=== PATIENT | male | born 2000 | race Asian ===

== ENCOUNTER 2022-07-10 22:29 | Inpatient (IN) | payer MEDICAID ==
[~2022-07-10] VITALS: Ht 172.7 cm; Wt 66.0 kg
[~2022-07-10 22:29] MED LIST: [UNRECOGNIZED DRUG - REMARK] PO
[2022-07-10] MEDS ORDERED: LORazepam 2 MG/ML VIAL IM ONE (23:15)
[2022-07-10] MEDS ORDERED: DiphenhydrAMINE HCL 50 MG/ML VIAL IM ONE (23:15)
[2022-07-10] MEDS ORDERED: HALOPERIDOL LACTATE 5 MG/ML VIAL IM ONE ×2 (23:15→23:30)
[2022-07-11] LABS: COVID AG,FIA SOURCE NASOPHARYNGEAL
[2022-07-11 00:09] LABS: BASOPHILS % (AUTO) 0.7 % (0.0-2.0); EOSINOPHILS % (AUTO) 0.6 % (1.0-6.0); HEMATOCRIT 43.8 % (41-53); HEMOGLOBIN 14.6 g/dL (13.5-17.5); LYMPHOCYTES # (AUTO) 1.1 K/uL (1.0-4.8); LYMPHOCYTES % (AUTO) 20.6 % (22.0-44.0); MEAN CORPUSCULAR HEMOGLOBIN 30.3 pg (26.0-34.0); MEAN CORPUSCULAR HGB CONC 33.4 G/dL (31.0-37.0); MEAN CORPUSCULAR VOLUME 91 fL (80-100); MONOCYTES # (AUTO) 0.3 K/uL (0.1-1.0); MONOCYTES % (AUTO) 6.4 % (2.0-9.0); NEUTROPHILS # (AUTO) 3.8 K/uL (1.8-7.7); NEUTROPHILS % (AUTO) 71.7 % (40.0-70.0); PLATELET COUNT (AUTO) 248 K/uL (150-450); RED BLOOD CELL COUNT(AUTO) 4.84 MIL/uL (4.50-5.90)
[2022-07-11 00:13] LABS: ANION GAP 10 mmol/L (8-16); CALCIUM, TOTAL 9.5 mg/dL (8.8-10.5); CARBON DIOXIDE 29 mmol/L (22-29); CHLORIDE 103 mmol/L (98-107); CREATININE 0.83 mg/dL (0.60-1.30); GLUCOSE,RANDOM 93 mg/dL (70-110); SODIUM SERUM 142 mmol/L (136-145); UREA NITROGEN, BLOOD 9 mg/dL (7-18)
[2022-07-11 00:14] LABS: GLOMERULAR FILTR. RATE CALC > 60 mL/min (>60)
[2022-07-11 00:19] LABS: ALANINE AMINOTRANSFERASE 11 U/L (12-78); ALBUMIN 4.2 g/dL (3.4-5.0); ALKALINE PHOSPHATASE 70 U/L (46-116); ASPARTATE AMINOTRANSFERASE 12 U/L (15-37); BILIRUBIN,TOTAL 0.8 mg/dL (0.1-1.0); TOTAL PROTEIN, SERUM 7.6 g/dL (6.4-8.2)
[2022-07-11] MEDS ORDERED: HALOPERIDOL 5 MG TABLET PO PRN (00:45)
[2022-07-11] MEDS ORDERED: ZOLPIDEM TARTRATE 10 MG TABLET PO PRN (00:45)
[2022-07-11] MEDS ORDERED: LORazepam 2 MG TABLET PO PRN (00:45)
[2022-07-11 16:01] LABS: APPEARANCE,URINE CLEAR (CLEAR); BILIRUBIN,URINE NEGATIVE (NEGATIVE); GLUCOSE, URINE (UA) NEGATIVE (NEGATIVE); KETONES,URINE TRACE mg/dL (NEGATIVE); LEUKOCYTE ESTERASE ,URINE NEGATIVE (NEGATIVE); NITRATE,URINE NEGATIVE (NEGATIVE); OCCULT BLOOD,URINE NEGATIVE (NEGATIVE); PROTEIN,URINE NEGATIVE (NEGATIVE); SPECIFIC GRAVITIY, URINE 1.017 (1.003-1.030)
[2022-07-11 16:07] LABS: AMPHET/METH SCREEN,URINE NEGATIVE (NEGATIVE); BARBITURATE SCREEN, URINE NEGATIVE (NEGATIVE); BENZODIAZEPINES SCREEN,URINE NEGATIVE (NEGATIVE); CANNABINOID SCREEN,URINE NEGATIVE (NEGATIVE); COCAINE SCREEN,URINE NEGATIVE (NEGATIVE); METHADONE SCREEN, URINE NEGATIVE (NEGATIVE); OPIATE SCREEN,URINE NEGATIVE (NEGATIVE)
[2022-07-11 16:08] LABS: PHENCYCLIDINE SCREEN,URINE NEGATIVE (NEGATIVE)
[2022-07-12 10:30] VITALS: BP 128/76
[2022-07-13 08:30] VITALS: BP 115/69
[2022-07-13] MEDS ORDERED: DIVA-112 PO (11:38)
== END 2022-07-13 14:30 | disposition home or self-care (01) | DRG 755 ==
LOC: EMS 22:52 → 3EC 07-12 09:00
PROVIDERS: ADMIT Psychiatry & Neurology Psychiatry; ATTEND Psychiatry & Neurology Psychiatry
DX: F43.10 Post-traumatic stress disorder, unspecified (principal); Z20.822 Contact with and (suspected) exposure to COVID-19
CPT/HCPCS: 80053; 81003; 85025; 99285; G0480; J1200; J1630; J2060

== ENCOUNTER 2023-02-22 18:28 | Emergency (ER) | payer MEDICAID ==
[~2023-02-22] VITALS: Ht 172.7 cm; Wt 77.3 kg
[~2023-02-22 18:28] MED LIST changes: +DIVA-112 PO; -[UNRECOGNIZED DRUG - REMARK] PO
[2023-02-22 18:29] VITALS: BP 148/72
[2023-02-22 20:29] LABS: BASOPHILS % (AUTO) 0.8 % (0.0-2.0); EOSINOPHILS % (AUTO) 0.4 % (1.0-6.0); HEMATOCRIT 46.7 % (41-53); HEMOGLOBIN 15.3 g/dL (13.5-17.5); LYMPHOCYTES # (AUTO) 1.6 K/uL (1.0-4.8); MEAN CORPUSCULAR HEMOGLOBIN 30.1 pg (26.0-34.0); MEAN CORPUSCULAR HGB CONC 32.9 G/dL (31.0-37.0); MEAN CORPUSCULAR VOLUME 92 fL (80-100); MONOCYTES # (AUTO) 0.6 K/uL (0.1-1.0); NEUTROPHILS # (AUTO) 5.8 K/uL (1.8-7.7); NEUTROPHILS % (AUTO) 71.8 % (40.0-70.0); PLATELET COUNT (AUTO) 252 K/uL (150-450); RED BLOOD CELL COUNT(AUTO) 5.09 MIL/uL (4.50-5.90); RED CELL DISTRIBUTION WIDTH 13.6 % (11.5-14.5)
[2023-02-22 20:38] LABS: ANION GAP 13 mmol/L (8-16); CALCIUM, TOTAL 9.5 mg/dL (8.8-10.5); CARBON DIOXIDE 26 mmol/L (22-29); CHLORIDE 100 mmol/L (98-107); CREATININE 0.87 mg/dL (0.60-1.30); GLOMERULAR FILTR. RATE CALC > 60 mL/min (>60); GLUCOSE,RANDOM 108 mg/dL (70-110); POTASSIUM 3.5 mmol/L (3.5-5.1); SODIUM SERUM 139 mmol/L (136-145)
[2023-02-22 20:46] LABS: ALANINE AMINOTRANSFERASE 10 U/L (12-78); ALBUMIN 4.7 g/dL (3.4-5.0); ALKALINE PHOSPHATASE 71 U/L (46-116); ASPARTATE AMINOTRANSFERASE 13 U/L (15-37); BILIRUBIN,TOTAL 0.8 mg/dL (0.1-1.0); TOTAL PROTEIN, SERUM 8.4 g/dL (6.4-8.2)
[2023-02-22 21:47] LABS: BARBITURATE SCREEN, URINE NEGATIVE (NEGATIVE); BENZODIAZEPINES SCREEN,URINE NEGATIVE (NEGATIVE); CANNABINOID SCREEN,URINE NEGATIVE (NEGATIVE); COCAINE SCREEN,URINE NEGATIVE (NEGATIVE); METHADONE SCREEN, URINE NEGATIVE (NEGATIVE); OPIATE SCREEN,URINE NEGATIVE (NEGATIVE); PHENCYCLIDINE SCREEN,URINE NEGATIVE (NEGATIVE)
[2023-02-22 22:15] LABS: AMPHET/METH SCREEN,URINE NEGATIVE (NEGATIVE)
== END 2023-02-22 19:30 | disposition left against medical advice (07) ==
LOC: EMS 18:29
DX: Z00.8 Encounter for other general examination (principal); Z53.21 Procedure and treatment not carried out due to patient leaving prior to being seen by health care provider
CPT/HCPCS: 99281; 80053; 85025; 36415; 80307 ×2; G0480

== ENCOUNTER 2023-10-18 10:32 | Inpatient (IN) | payer MEDICAID ==
[~2023-10-18] VITALS: Ht 157.5 cm; Wt 57.0 kg
[2023-10-18 10:59] LABS: BASOPHILS % (AUTO) 0.9 % (0.0-2.0); EOSINOPHILS % (AUTO) 1.5 % (1.0-6.0); HEMATOCRIT 39.5 % (41-53); HEMOGLOBIN 13.1 g/dL (13.5-17.5); LYMPHOCYTES % (AUTO) 21.3 % (22.0-44.0); MEAN CORPUSCULAR HEMOGLOBIN 31.3 pg (26.0-34.0); MEAN CORPUSCULAR VOLUME 95 fL (80-100); MONOCYTES % (AUTO) 11.2 % (2.0-9.0); NEUTROPHILS % (AUTO) 65.1 % (40.0-70.0); PLATELET COUNT (AUTO) 190 K/uL (150-450); RED BLOOD CELL COUNT(AUTO) 4.17 MIL/uL (4.50-5.90); RED CELL DISTRIBUTION WIDTH 14.9 % (11.5-14.5); WHITE BLOOD COUNT (AUTO) 9.2 K/uL (4.5-11.0)
[2023-10-18 11:03] LABS: COVID AG,FIA SOURCE NASAL SWAB
[2023-10-18 11:14] LABS: SARS-COV2 (COVID) ANTIGEN,FIA Negative (Negative)
[2023-10-18 11:31] LABS: ALANINE AMINOTRANSFERASE 30 U/L (12-78); ALKALINE PHOSPHATASE 76 U/L (46-116); ANION GAP 10 mmol/L (8-16); ASPARTATE AMINOTRANSFERASE 53 U/L (15-37); BILIRUBIN,TOTAL 0.4 mg/dL (0.1-1.0); CALCIUM, TOTAL 8.8 mg/dL (8.8-10.5); CARBON DIOXIDE 27 mmol/L (22-29); CHLORIDE 108 mmol/L (98-107); CREATININE 1.02 mg/dL (0.60-1.30); GLOMERULAR FILTR. RATE CALC > 60 mL/min (>60); GLUCOSE,RANDOM 91 mg/dL (70-110); POTASSIUM 4.6 mmol/L (3.5-5.1); SODIUM SERUM 145 mmol/L (136-145); TOTAL PROTEIN, SERUM 7.5 g/dL (6.4-8.2); UREA NITROGEN, BLOOD 6 mg/dL (7-18)
[2023-10-18 11:38] LABS: ALCOHOL, BLOOD (SERUM) < 3 mg/dL (0-10)
[2023-10-18 11:39] LABS: ALCOHOL, URINE DRUG SCREEN NEGATIVE (NEGATIVE); AMPHET/METH SCREEN,URINE NEGATIVE (NEGATIVE); BARBITURATE SCREEN, URINE NEGATIVE (NEGATIVE); BENZODIAZEPINES SCREEN,URINE NEGATIVE (NEGATIVE); CANNABINOID SCREEN,URINE NEGATIVE (NEGATIVE); COCAINE SCREEN,URINE NEGATIVE (NEGATIVE); METHADONE SCREEN, URINE NEGATIVE (NEGATIVE); OPIATE SCREEN,URINE NEGATIVE (NEGATIVE); PHENCYCLIDINE SCREEN,URINE NEGATIVE (NEGATIVE)
[2023-10-18] MEDS ORDERED: HALOPERIDOL 5 MG TABLET PO ONE (11:45)
[2023-10-18] MEDS ORDERED: LORazepam 2 MG TABLET PO ONE (11:45)
[2023-10-18] MEDS ORDERED: HALOPERIDOL 5 MG TABLET PO PRN (13:00)
[2023-10-18] MEDS ORDERED: ZOLPIDEM TARTRATE 10 MG TABLET PO PRN (13:00)
[2023-10-18] MEDS ORDERED: LOPERAMIDE HCL 2 MG CAPSULE PO PRN (15:00)
[2023-10-18] MEDS ORDERED: IBUPROFEN 400 MG TABLET PO PRN (15:00)
[2023-10-18] MEDS ORDERED: PETROLATUM,WHITE 28 GM JELLY TP PRN (15:00)
[2023-10-18] MEDS ORDERED: ACETAMINOPHEN 325 MG TABLET PO PRN (15:00)
[2023-10-18] MEDS ORDERED: ALBUTEROL SULFATE HFA 90 MCG/PUFF 8 GM INHALER IH PRN (15:00)
[2023-10-18] MEDS ORDERED: ONDANSETRON HCL 4 MG TABLET PO PRN (15:00)
[2023-10-18] MEDS ORDERED: MAGNESIUM HYDROXIDE SUSPENSION 30 ML UDCUP PO PRN (15:00)
[2023-10-18] MEDS ORDERED: CloNIDine HCL 0.1 MG TABLET PO PRN (15:00)
[2023-10-18] MEDS ORDERED: NICOTINE 14 MG/24 HOUR PATCH TD PRN (15:00)
[2023-10-18] MEDS ORDERED: DOCUSATE SODIUM 100 MG CAPSULE PO PRN (15:00)
[2023-10-18] MEDS ORDERED: MAG HYDROX/ALUMINUM HYD/SIMETH ES 30 ML SUSPENSION UDCUP PO PRN (15:00)
[2023-10-18] MEDS ORDERED: GuaiFENesin/D-METHORPHAN [SUGAR-FREE] 200-20MG/10 ML SYRUP UDCUP PO PRN (15:00)
[2023-10-18 20:22] VITALS: BP 122/68; PULSE 83; RESP 18; TEMP 98.4
[2023-10-18] MEDS ORDERED: INFLUENZA VIRUS VACCINE QVS 2023-24 (6MO+)/PF 60 MCG/0.5 ML SYRINGE IM. ONE (23:45)
[2023-10-19 08:14] VITALS: BP 114/62; PULSE 98; RESP 17; TEMP 97; O2SAT 97
[2023-10-19 08:17] LABS: HEMOGLOBIN A1C 4.6 % (3.8-5.6)
[2023-10-19 08:46] LABS: CHOL/HDL RATIO 2.5 (4.2-7.3); THYROID STIMULATING HORMONE 1.29 uIU/mL (0.36-3.74)
[2023-10-19] MEDS: LURASIDONE HCL 40 MG TABLET PO SCH (16:57)
[2023-10-19 20:04] VITALS: BP 104/66; PULSE 89; RESP 18; TEMP 97.6; O2SAT 98
[2023-10-20] MEDS: LURASIDONE HCL 40 MG TABLET PO SCH ×2 (06:42→18:46)
[2023-10-20 08:21] VITALS: BP 122/63; PULSE 97; RESP 17; TEMP 98; O2SAT 97
[2023-10-20 23:32] VITALS: BP 124/77; PULSE 68; RESP 18; TEMP 97.7
[2023-10-21] MEDS: LURASIDONE HCL 40 MG TABLET PO SCH ×2 (06:43→17:16)
[2023-10-21] MEDS: LORazepam 2 MG TABLET PO PRN ×2 (08:02→17:16)
[2023-10-21 08:24] VITALS: BP 110/60; PULSE 89; RESP 17; TEMP 98; O2SAT 100
[2023-10-21 21:30] VITALS: BP 125/93; PULSE 93; RESP 17; TEMP 98.2; O2SAT 97
[2023-10-22] MEDS: LURASIDONE HCL 40 MG TABLET PO SCH ×2 (06:24→16:14)
[2023-10-22 08:12] VITALS: BP 116/67; PULSE 85; RESP 18; TEMP 98.3; O2SAT 97
[2023-10-22] MEDS: LORazepam 2 MG TABLET PO PRN (16:14)
[2023-10-22 22:26] VITALS: BP 110/73; PULSE 100; RESP 18; TEMP 97.3; O2SAT 97
[2023-10-23] MEDS: LURASIDONE HCL 40 MG TABLET PO SCH ×2 (06:19→16:53)
[2023-10-23 08:56] VITALS: BP 118/64; PULSE 100; RESP 18; TEMP 97.5; O2SAT 97
[2023-10-23 21:06] VITALS: BP 114/67; PULSE 89; RESP 18; TEMP 97.8; O2SAT 96
[2023-10-24] MEDS: LURASIDONE HCL 40 MG TABLET PO SCH ×2 (06:31→16:29)
[2023-10-24 08:34] LABS: APPEARANCE,URINE CLEAR (CLEAR); BILIRUBIN,URINE NEGATIVE (NEGATIVE); COLOR,URINE COLORLESS (YELLOW); GLUCOSE, URINE (UA) NEGATIVE (NEGATIVE); KETONES,URINE NEGATIVE (NEGATIVE); LEUKOCYTE ESTERASE ,URINE NEGATIVE (NEGATIVE); NITRATE,URINE NEGATIVE (NEGATIVE); OCCULT BLOOD,URINE NEGATIVE (NEGATIVE); PROTEIN,URINE NEGATIVE (NEGATIVE); SPECIFIC GRAVITIY, URINE 1.005 (1.003-1.030); UROBILINOGEN,URINE <=1.0 mg/dL (<=1.0)
[2023-10-24 08:49] LABS: AMPHET/METH SCREEN,URINE NEGATIVE (NEGATIVE); BARBITURATE SCREEN, URINE NEGATIVE (NEGATIVE); BENZODIAZEPINES SCREEN,URINE NEGATIVE (NEGATIVE); CANNABINOID SCREEN,URINE NEGATIVE (NEGATIVE); COCAINE SCREEN,URINE NEGATIVE (NEGATIVE); METHADONE SCREEN, URINE NEGATIVE (NEGATIVE); OPIATE SCREEN,URINE NEGATIVE (NEGATIVE); PHENCYCLIDINE SCREEN,URINE NEGATIVE (NEGATIVE)
[2023-10-24 08:50] LABS: ALCOHOL, URINE DRUG SCREEN NEGATIVE (NEGATIVE)
[2023-10-24 12:36] VITALS: BP 116/67; PULSE 99; RESP 16; TEMP 98.5; O2SAT 97
[2023-10-24] MEDS: LORazepam 2 MG TABLET PO PRN (16:29)
[2023-10-24 20:13] VITALS: BP 120/70; PULSE 86; RESP 18; TEMP 98.2; O2SAT 98
[2023-10-25] MEDS: LURASIDONE HCL 40 MG TABLET PO SCH ×2 (06:30→16:32)
[2023-10-25 08:11] VITALS: BP 115/68; PULSE 86; RESP 17; TEMP 97.9; O2SAT 100
[2023-10-25] MEDS: LORazepam 2 MG TABLET PO PRN (16:51)
[2023-10-25 21:27] VITALS: BP 102/60; PULSE 75; RESP 18; TEMP 97; O2SAT 97
[2023-10-26] MEDS: LURASIDONE HCL 40 MG TABLET PO SCH (06:27)
[2023-10-26 09:07] VITALS: BP 139/84; PULSE 96; RESP 17; TEMP 97.7; O2SAT 100
[2023-10-26] MEDS: LORazepam 2 MG TABLET PO PRN (11:01)
[2023-10-26] MEDS ORDERED: LURA40TA4 PO (12:44)
== END 2023-10-26 20:04 | disposition left against medical advice (07) | DRG 750 ==
LOC: EMS 10:32 → B3A 12:59 → B2S 16:34
PROVIDERS: ADMIT Psychiatry & Neurology Child & Adolescent Psychiatry; ATTEND Psychiatry & Neurology Child & Adolescent Psychiatry
DX: F25.1 Schizoaffective disorder, depressive type (principal); R45.851 Suicidal ideations; Z91.148 Patient's other noncompliance with medication regimen for other reason; F43.10 Post-traumatic stress disorder, unspecified; F41.9 Anxiety disorder, unspecified; R10.13 Epigastric pain; G47.00 Insomnia, unspecified; Z53.29 Procedure and treatment not carried out because of patient's decision for other reasons; Z20.822 Contact with and (suspected) exposure to COVID-19; Z59.00 Homelessness unspecified; Z63.4 Disappearance and death of family member; Z88.0 Allergy status to penicillin; Z91.51 Personal history of suicidal behavior; Z28.21 Immunization not carried out because of patient refusal
CPT/HCPCS: 80053; 80061; 80307; 81003; 83036; 84443; 85025; 87081; G0480